=== PATIENT | female | born 1955 | race Caucasian/White ===

== ENCOUNTER 2019-01-13 19:23 | Emergency (ER) | payer OTHER ==
[~2019-01-13] VITALS: Ht 157.5 cm; Wt 63.0 kg
[~2019-01-13 19:23] MED LIST: SYNTHROID50 MCG; TEGRETOL200 MG
[2019-01-13] MEDS ORDERED: CALTRATE 600+D1 EAC1 (20:10)
[2019-01-13] MEDS ORDERED: FOLGARD TABLET1 EACH (20:10)
== END 2019-01-13 23:01 | disposition home or self-care (01) ==
LOC: ER 19:23
DX: R42 Dizziness and giddiness (principal)

== ENCOUNTER 2019-03-16 05:25 | Day surgery (SDC) | payer OTHER ==
[~2019-03-16 05:25] MED LIST changes: +CALTRATE 600+D1 EAC1; +FOLGARD TABLET1 EACH
== END 2019-03-16 12:40 | disposition home or self-care (01) ==
LOC: AMB-ENDOS 05:25
DX: D12.2 Benign neoplasm of ascending colon (principal)